=== PATIENT | male | born 1960 | race Caucasian/White ===

== ENCOUNTER 2019-01-13 19:29 | Inpatient (IN) | payer BC, OTHER ==
[2019-01-13] MEDS ORDERED: HYDROMORPHONE HCL 2 MG/ML SOL IM ONE (20:09)
[2019-01-13] MEDS ORDERED: HYDROMORPHONE 1 MG/ML SYRINGE ONE (20:10)
[2019-01-13] MEDS ORDERED: FENTANYL 100MCG/2ML SOL IV ONE ×2 (20:32→21:30)
[2019-01-13] MEDS ORDERED: LORAZEPAM 2 MG/ML SOL IV ONE (20:32)
[2019-01-13] MEDS ORDERED: FENTANYL 100MCG/2ML SOL ONE ×2 (20:50→21:47)
[2019-01-13] MEDS ORDERED: LORAZEPAM 2 MG/ML SOL ONE (20:50)
[2019-01-13] MEDS ORDERED: OXYBUTYNIN CHLORIDE 5 MG TAB PO SCH (21:30)
[2019-01-13] MEDS ORDERED: SODIUM CHLORIDE 0.9% 1000ML 1,000 ML IV ONE (21:30)
[2019-01-13] MEDS ORDERED: KETOROLAC TROMETHAMINE 30 MG/ML SOL IV ONE (21:33)
[2019-01-13] MEDS ORDERED: KETOROLAC TROMETHAMINE 30 MG/ML SOL ONE (21:40)
[2019-01-13] MEDS ORDERED: KETOROLAC TROMETHAMINE 30 MG/ML SOL IV PRN (22:10)
[2019-01-13] MEDS ORDERED: ACETAMINOPHEN 325 MG PO PRN (22:11)
[2019-01-13] MEDS ORDERED: CEFTRIAXONE 1 GM PDS 2 GM in SODIUM CHLORIDE 0.9% 100 ML 100 ML IV SCH (22:15)
[2019-01-13] MEDS: FENTANYL 100MCG/2ML SOL IV SCH (22:41)
[2019-01-13] MEDS ORDERED: CEFTRIAXONE 1 GM PDS ONE (22:42)
[2019-01-13] MEDS ORDERED: SODIUM CHLORIDE 0.9% 100 ML 100 ML IV ONE (22:42)
[2019-01-14 00:48] VITALS: BP 119/61; PULSE 52; TEMP 97.9
[2019-01-14] MEDS: SODIUM CHLORIDE 0.9% 1000ML 1,000 ML IV SCH ×2 (00:48→01:44)
[2019-01-14 01:06] VITALS: RESP 18
[2019-01-14] MEDS ORDERED: FENTANYL 100MCG/2ML SOL ONE ×2 (01:13→04:04)
[2019-01-14] MEDS: FENTANYL 100MCG/2ML SOL IV SCH ×2 (01:16→04:06)
[2019-01-14] MEDS ORDERED: LIDOCAINE HCL 2% GEL TOP PRN (01:51)
[2019-01-14] MEDS ORDERED: LIDOCAINE HCL 2% GEL TOP ONE (02:13)
[2019-01-14 04:02] VITALS: O2SAT 93
[2019-01-14] MEDS ORDERED: OXYBUTYNIN CHLORIDE 5 MG TAB PO SCH (07:00)
[2019-01-14] MEDS ORDERED: PHENAZOPYRIDINE HYDROCHLORID 100 MG TAB PO SCH (09:00)
[2019-01-14] MEDS ORDERED: TAMSULOSIN HYDROCHLORIDE 0.4 MG CAP PO SCH (21:00)
== END 2019-01-14 04:40 | disposition short-term general hospital (02) | DRG 466 ==
LOC: ED 19:29 → ACUTE CARE 21:54
PROVIDERS: ADMIT Family Medicine; ATTEND Family Medicine
DX: T83.511A Infection and inflammatory reaction due to indwelling urethral catheter, initial encounter (principal); R52 Pain, unspecified; N32.89 Other specified disorders of bladder; N39.0 Urinary tract infection, site not specified; R33.9 Retention of urine, unspecified
CPT/HCPCS: 51798; 93012; 94762; 96372; 96374; 96375; 99070; 99222; 99238; 99285; J0696; J1885; J2060; J3010; A9270-GY; J1170

== ENCOUNTER 2019-02-01 14:26 | Emergency (ER) | payer BC ==
[2019-02-01 14:48] VITALS: BP 136/83; PULSE 74; RESP 28; TEMP 97.6; O2SAT 98
[2019-02-01] MEDS ORDERED: LIDOCAINE HCL 2% GEL TOP ONE ×2 (15:38→15:39)
== END 2019-02-01 16:10 | disposition home or self-care (01) ==
LOC: ED 14:26
DX: R33.9 Retention of urine, unspecified (principal)
CPT/HCPCS: 51798; 99282; 99283; A9270-GY

== ENCOUNTER 2019-02-06 16:36 | Emergency (ER) | payer BC ==
[2019-02-06 19:52] VITALS: TEMP 98.1; O2SAT 95
[2019-02-06 20:01] VITALS: BP 150/78; PULSE 72; RESP 18
== END 2019-02-06 17:35 | disposition home or self-care (01) ==
LOC: ED 16:36
DX: T83.091A Other mechanical complication of indwelling urethral catheter, initial encounter (principal)
CPT/HCPCS: 51798; 99283; 99284

== ENCOUNTER 2019-02-06 21:32 | Emergency (ER) | payer BC | END 2019-02-06 22:38 | disposition home or self-care (01) | LOC: ED 21:32 ==